=== PATIENT | female | born 1960 | race Caucasian/White ===

== ENCOUNTER → 2023-04-05 07:16 | Outpatient (REF) | payer BC, SELFPAY | LOC: DHCBC HW 07:16 | PROVIDERS: ATTENDING PHYSICIAN Internal Medicine Cardiovascular Disease; FAMILY PHYSICIAN Internal Medicine | DX: R42 Dizziness and giddiness (principal); E87.6 Hypokalemia | CPT/HCPCS: 93306 ==

== ENCOUNTER 2023-04-16 21:14 | Emergency (ER) | payer BC, SELFPAY ==
[2023-04-16 21:18] VITALS: BP 133/86
[2023-04-16 21:37] VITALS: BMI 27.9
--- NOTE | 2023-04-16 21:47 | ED.GENMED ---
History of Present Illness
General
Chief Complaint: Chest Pain
Time Seen by Provider: 04/16/23 21:43
Travel History
Have you had any contact with someone who has COVID-19?: No
Do you have any symptoms of coronavirus? Fever > 100 degrees, chills, cough, shortness of breath, sore throat, loss of taste or smell, muscle aches, or headache?: No
History of Present Illness
History of Present Illness:
HPI: Patient presents with chest pressure over the past 1+ month. Tonight about 3 hours ago, the patient had a stabbing sensation of the left side of the chest that lasted for a few seconds. This occurred again. She then had a trembling sensation
throughout her body. She has had some vague shortness of breath with exertion for many months. This is not new. She does not appear short of breath currently.
EXAM:
GENERAL: Well appearing in no distress
HEENT: Moist oral mucosa
CARDIOVASCULAR: No murmurs, normal heart rate and rhythm, No chest wall tenderness
PULMONARY: No respiratory distress, breath sounds are clear and equal
ABDOMEN: Soft with no peritoneal signs, no tenderness
NEUROLOGIC: Excellent strength all extremities, no coordination deficits
PSYCHIATRIC: Appropriate mental status, normal insight and judgement
EXTREMITIES: Nontender, no edema, moves all extremities equally
SKIN: No rash, no lesions
ED COURSE:
10 PM: I initially evaluated patient
NUMBER AND COMPLEXITY OF PROBLEMS ADDRESSED AT THE ENCOUNTER
� Chronic conditions affecting care: Has been having problems with hypokalemia currently on potassium supplementation, history of breast cancer
� Acute Exacerbation and/or Progression of Chronic Illness: This is an acute to subacute problem
� Differential Diagnosis includes: Anxiety, chest wall pain, ACS
AMOUNT AND/OR COMPLEXITY OF DATA TO BE REVIEWED AND ANALYZED
� I performed an independent evaluation of and my interpretation is:
EKG: Sinus 111, normal axis, nonspecific ST abnormality
CT:
X-rays:
Laboratory Studies: CBC, chemistries are unremarkable. Potassium is 3.6. Troponin is negative and she has had chest pressure for about a month.
Other:
� Review of other/old records: Echo from 04-27 showed an EF of 55 to 60% and normal diastolic function. She did have a Holter monitor that showed low rate of 59 and heart rate of 117 with isolated supraventricular and isolated
beats.
� Clinical information was obtained by an independent historian: I spoke to the at bedside
� Prescriptions/Medications Considered but not given:
� Further testing considered but not performed: Considered D-dimer testing however she states it was high and had a negative CTA at [facility] [place] for evaluation of PE.
RISK OF COMPLICATIONS AND/OR MORBIDITY OR MORTALITY OF PATIENT MANAGEMENT
� Social determinants of health affecting care: Lives at home
� Discussion with other providers:
� Escalation of care including admission/observation vs risk of discharge considered: The patient states she is going to be following up several specialist including cardiology and endocrinology and already saw nephrology.
Unclear etiology of patient's symptoms. She also tells me that she had a CTA that was negative for PE and [facility] [place]. She appears comfortable at time of discharge.
Past History
Past History
ED Past Medical History: Other (Intermittent palpitations, reported electrolyte imbalances/sporadic hypokalemia)
ED Past Surgical History: Cholecystectomy, Gynecological (Lumpectomy) and Orthopedic
Social History
Tobacco: Non-smoker
Alcohol: None
Personal:
Living: with family
Employment: Employed
Family History
Family History: Other ( Noncontributory )
Phy Exam
Physical Exam
Physical Exam:
See HPI
Scores
Heart Score for Chest Pain Patients
STEMI patient?: Not applicable
Course
Orders/Labs/Results
Orders:
Orders
04/16/23 21:16
EKG [Electrocardiogram (*1)] Urgent
Reason for Study: Chest Pain
04/16/23 21:17
EKG- Treatment ONCE
04/16/23 21:45
Complete Blood Count/With Diff Urgent
Comprehensive Metabolic Panel Urgent
Troponin I Urgent
Abnormal Lab Results
04/16/23
21:45
BUN 23 H mg/dl
(7-17)
Glucose 146 H mg/dl
(70-99)
04/16/23 21:45
04/16/23 21:45
Vital Signs
Initial and Last Documented VS:
Initial Vital Signs
Temp Pulse Resp BP Pulse Ox
98.3 F 110 16 133/86 97
04/16/23 21:18 04/16/23 21:18 04/16/23 21:18 04/16/23 21:18 04/16/23 21:18
Last Documented Vital Signs
Temp Pulse Resp BP Pulse Ox
98.3 F 87 16 104/69 94
04/16/23 21:18 04/16/23 23:00 04/16/23 23:00 04/16/23 23:00 04/16/23 23:00
*Critical Care Note
Total Time (30-74mins, 75-104mins- exclusive of procedures): Not Applicable
ED Attending Note
-
Portions of this chart may have been created with voice recognition software.� Occasional wrong word or��sound alike� substitutions may have occurred due to the inherent limitations of voice recognition software.
Discharge Plan
Departure
Patient Disposition: Home (Routine Discharge)
Date of Disposition: 04/16/23
Time of Disposition: 23:25
Patient with high blood pressure during this ER visit?: Yes
Discharge Problem:
Chest pain
Instructions: Chest Pain PCP Follow Up
Prescriptions:
No Action
multivitamin Tablet
1 tab PO DAILY
potassium chloride 10 mEq Tablet Extended Release
10 meq PO DAILY
aspirin 81 mg Tablet
81 mg PO DAILY
cholecalciferol (vitamin D3) [Vitamin D3] 50 mcg (2,000 unit) Tablet
50 mcg PO DAILY
Proobiotic
1 tab PO DAILY
Referrals:
Slade Kumar MD [Family Provider] -
Activity Restrictions/Additional Instructions:
Follow-up with your outreach worker as previously scheduled. Cardiac blood work is normal. Return here if worse.
Interventions
Interventions:
*Risk Screen - Suicide Last Done: 04/16/23 21:37
*General Assessment Last Done: 04/16/23 21:37
*Neglect/Abuse Screening Last Done: 04/16/23 21:18
ED- Fall Risk Assessment Last Done: 04/16/23 21:18
*ED COVID-19 Vaccine History Last Done: 04/16/23 21:18
ED- Cardiac Assessment Last Done: 04/16/23 23:05
[2023-04-16 21:52] LABS: % Basophils 0.7 % (0-2); % Eosinophils 2.6 % (0-6); % Immature Granulocytes 0.2 % (0-0.5); % Lymphocytes 32.1 % (20.5-51.1); % Monocytes 8.7 % (1.7-9.3); % Neutrophils 55.7 % (42.2-75.2); Absolute Eosinophils 0.2 10^3/uL (0-0.7); Absolute Monocytes 0.5 10^3/uL (0.1-0.6); Absolute Neutrophils 3.4 10^3/uL (1.4-6.5); Hematocrit 42.5 % (37.0-47.0); Hemoglobin 14.4 g/dL (12.0-16.0); Mean Corp Hgb Conc. 33.9 g/dL (33.0-37.0); Mean Corpuscular Hgb 29.5 pg (27.0-31.0); Mean Corpuscular Volume 87.1 fL (81.0-99.0); Mean Platelet Volume 9.2 fL (7.4-10.4); Nucleated Red Blood Cells % 0 %; Platelet Count 324 10^3/uL (130-400); Red Blood Cell Count 4.88 10^6/uL (4.20-5.40); White Blood Cell Count 6.1 10^3/uL (4.8-10.8)
[2023-04-16 22:02] VITALS: BP 109/76
[2023-04-16 22:07] LABS: ALT (SGPT) 19 U/L (0-35); AST (SGOT) 29 U/L (14-36); Albumin 4.3 g/dl (3.5-5.0); Alkaline Phosphatase 78 U/L (38-126); Blood Urea Nitrogen 23 mg/dl (7-17); Calcium 9.2 mg/dl (8.4-10.2); Carbon Dioxide 24 mmol/L (22-30); Chloride 106 mmol/L (98-107); Estimated Creatinine Clearance 75 ml/min; Glucose 146 mg/dl (70-99); Potassium 3.6 mmol/L (3.5-5.1); Sodium 135 mmol/L (135-145); Total Bilirubin 0.4 mg/dl (0.2-1.3); eGFR > 60.00
[2023-04-16 22:16] LABS: Troponin I < 0.012 ng/ml
[2023-04-16 23:00] VITALS: BP 104/69
== END 2023-04-17 | disposition home or self-care (01) ==
LOC: EMR 21:14
PROVIDERS: EMERGENCY PHYSICIAN Emergency Medicine; FAMILY PHYSICIAN Internal Medicine
DX: R07.89 Other chest pain (principal); R06.02 Shortness of breath; R25.1 Tremor, unspecified; R03.0 Elevated blood-pressure reading, without diagnosis of hypertension; E87.6 Hypokalemia; Z85.3 Personal history of malignant neoplasm of breast
CPT/HCPCS: 99284; 80053; 84484; 85025; 93005

== ENCOUNTER → 2023-04-22 10:32 | Outpatient (REF) | payer BC, SELFPAY | LOC: RAD 10:32 | PROVIDERS: ATTENDING PHYSICIAN Internal Medicine Cardiovascular Disease; FAMILY PHYSICIAN Internal Medicine | DX: R07.89 Other chest pain (principal) | CPT/HCPCS: 75574; Q9967 ==